=== PATIENT | male | born 1950 | race Caucasian/White ===

== ENCOUNTER → 2020-07-15 19:09 | Outpatient (ROUT) | payer OTHER, SELFPAY ==
[2020-07-15 19:43] LABS: Aspartate Aminotransferase 30 IU/L (17-59); Blood Urea Nitrogen 17 mg/dL (9-20); Calcium 9.7 mg/dL (8.4-10.2); Carbon Dioxide 27 mmol/L (22-32); Chloride 103 mmol/L (98-107); Cholesterol 164 mg/dL (140-199); Estimated Glomerular Filt Rate > 60.0 mL/min (>60); Glucose 91 mg/dL (80-110); HDL Cholesterol 73 mg/dL (40-60); HEMOLYSIS < 15 (0-50); LDL Cholesterol Calculated 78 mg/dL (<100); Potassium 4.2 mmol/L (3.4-5.1); Sodium 138 mmol/L (137-145); Triglycerides 67 mg/dL (35-150)
[2020-07-15 20:15] LABS: Hematocrit 44.3 % (41-53); Hemoglobin 14.6 g/dL (13.5-17.5); Mean Corpuscular Hemoglobin 31.3 PG (26-34); Mean Corpuscular Volume 95.1 fL (80-100); Platelet Count 218 X10^3/uL (150-400); Red Blood Cell Count 4.66 X10^6/uL (4.5-5.9)
[2020-07-15 21:04] LABS: Add Manual Diff / Slide Review NO; White Blood Cell Count 6.2 X10^3/uL (4.5-11.0)
[2020-07-15 21:07] LABS: Prostate Specific Antigen 0.738 ng/mL (0.10-4.00)
[2020-07-15 21:11] LABS: Ferritin 34 ng/mL (18-464)
== END ==
PROVIDERS: PCP Internal Medicine; Visit Provider Internal Medicine
DX: E78.2 Mixed hyperlipidemia (principal); N40.0 Benign prostatic hyperplasia without lower urinary tract symptoms; E61.1 Iron deficiency
CPT/HCPCS: 80048; 80061; 82728; 84153; 84450; 85025

== ENCOUNTER → 2021-01-20 08:24 | Outpatient (CLI) | payer OTHER, SELFPAY ==
[2021-01-20 12:30] LABS: COVID19 -Nasal RAPID Negative (Negative)
== END ==
PROVIDERS: PCP Internal Medicine; Visit Provider Physician Assistant
DX: Z20.822 Contact with and (suspected) exposure to COVID-19 (principal); Z01.812 Encounter for preprocedural laboratory examination
CPT/HCPCS: 87635

== ENCOUNTER 2021-01-21 08:27 | Day surgery (SDC) | payer OTHER, SELFPAY ==
[2021-01-21 09:14] VITALS: BP 137/84; PULSE 66; RESP 16; TEMP 37; O2SAT 100; BMI 23.1
[2021-01-21] MEDS: PROPARACAINE 0.5% OPHTH SOL 2 DROPS EYE-OP (09:26)
[2021-01-21] MEDS: CATARACT EYE COMPOUND (10 DROPS/SYRINGE) 3 DROPS EYE-OP (09:26)
--- NOTE | 2021-01-21 10:02 | P.OP_ITS ---
Operative Date/Time/Diagnoses Pre-op diagnosis: Nuclear cataract right eye Procedure & Clinicians Procedure: Cataract Surgery Same procedure as scheduled: Yes Surgeon: Polo Conde Anesthesia Type: MAC +/- and Sedation Operative Notes Procedure in detail: Patient brought to the operating suite. Tetracaine drops placed in the right eye.Marking instrument was used to deion the vertical and horizontal meridians. Patient was prepped and draped in sterile manner. Wire lid speculum was placed in the eye. Marking instrument was used to deion the 25 degree meridian. Betadine drops were placed on the eye. This was irrigated. Lidocaine jelly was placed on the eye. A paracentesis port was created with a side-port blade. 0.1 mL 1% preservative free lidocaine was injected into the anterior chamber. The anterior chamber was deepened with viscoelastic. 2.6 mm keratome was used to create a temporal clear corneal incision. Cystotome and Utrata forceps were used to create continuous tear capsulorrhexis. Balanced salt solution was used to hydro dissect the nucleus. The phacoemulsification handpiece was inserted and the nucleus was removed using the stop and chop technique. The irrigation aspiration handpiece was inserted and the remaining cortex was removed. Anterior chamber was deepened with viscoelastic. An Mccord [id number] intraocular lens with a power of 10.0 was injected into the capsular bag. Irrigation aspiration handpiece was inserted and the remaining viscoelastic was removed. The lens was rotated to the 25 degree meridian. Incision was hydrated with balanced salt solution and found to be leak free with pressure with Weck- Sharon sponges. 0.1 mL Vigamox injected anterior chamber. 0.3 mL Kenalog 10 mg was injected subconjunctivally. Lid speculum was removed. The patient left the operating room in excellent condition. Complications: none Post-operative Condition: stable Disposition: same day surgery
--- NOTE | 2021-01-21 10:02 | PM.PREOP ---
Pre-operative Note Interval Note History & Physical reviewed/Exam performed by Physician: Yes Changes to H&P: No
[2021-01-21] MEDS: MOXIFLOXACIN INJ 4 MG/0.8 ML VIAL 0.5 MG EYE-OP (10:19)
[2021-01-21] MEDS: HYALURONATE SODIUM 30 MG-10 MG/ML SYRINGES 1 BOX INTRAOCULA (10:19)
[2021-01-21] MEDS: TETRACAINE 0.5% OPHTH DROPS 4 ML 2 DROPS EYE-OP (10:19)
[2021-01-21] MEDS: PHENYLEPHRINE/LIDOCAINE VIAL (OR) 0.2 ML EYE-OP (10:19)
[2021-01-21] MEDS: LIDOCAINE 2% (GLYDO) 6 ML GEL TOP (10:19)
[2021-01-21] MEDS: BALANCED SALT IRRIG SOLN NO.2 500 ML, EPINEPHrine 1 MG IRR (10:20)
[2021-01-21] MEDS: TRIAMCINOLONE 50 MG/5 ML VIAL INJ (10:20)
[2021-01-21 10:35] VITALS: BP 116/72; PULSE 57; RESP 16; TEMP 36.9; O2SAT 97
[2021-01-21 10:43] VITALS: BP 112/72; PULSE 59; RESP 16; O2SAT 98
== END 2021-01-21 10:56 | disposition home or self-care (01) ==
PROVIDERS: PCP Internal Medicine; Referring Provider Ophthalmology; Visit Provider Ophthalmology
PROC: (CPT 66984; principal; 2021-01-21 10:15)
DX: H25.11 Age-related nuclear cataract, right eye (principal); E78.00 Pure hypercholesterolemia, unspecified
CPT/HCPCS: 66984; J0171; J2250; J3010; J3301; V2787

== ENCOUNTER → 2021-02-10 08:03 | Outpatient (CLI) | payer OTHER, SELFPAY ==
[2021-02-10 11:51] LABS: COVID19 -Nasal RAPID Negative (Negative)
== END ==
PROVIDERS: PCP Internal Medicine; Visit Provider Physician Assistant
DX: Z20.822 Contact with and (suspected) exposure to COVID-19 (principal)
CPT/HCPCS: 87635

== ENCOUNTER 2021-02-11 08:08 | Day surgery (SDC) | payer OTHER, SELFPAY ==
[2021-02-11] MEDS: PROPARACAINE 0.5% OPHTH SOL 2 DROPS EYE-OP (08:40)
[2021-02-11] MEDS: CATARACT EYE COMPOUND (10 DROPS/SYRINGE) 3 DROPS EYE-OP (08:41)
[2021-02-11 08:42] VITALS: BP 133/81; PULSE 67; RESP 14; TEMP 36.4; O2SAT 100; BMI 22.8
--- NOTE | 2021-02-11 09:37 | P.OP_ITS ---
Operative Date/Time/Diagnoses Pre-op diagnosis: Nuclear Cataract Left eye Post-op diagnosis: same Procedure & Clinicians Same procedure as scheduled: Yes Surgeon: Polo Conde Anesthesia Type: MAC +/- and Sedation Operative Notes Procedure in detail: Patient brought to the operating suite. Tetracaine drops placed in the left eye. Marking instrument was used to deion the vertical and horizontal meridians. Patient was prepped and draped in sterile manner. Wire lid speculum was placed in the eye. Marking instrument was used ot deion the 150 degree meridian. Bet adine drops were placed on the eye. This was irrigated. Lidocaine jelly was placed on the eye. A paracentesis port was created with a side-port blade. 0.1 mL 1% preservative free lidocaine was injected into the anterior chamber. The anterior chamber was deepened with viscoelastic. 2.6 mm keratome was used to create a temporal clear corneal incision. Cystotome and Utrata forceps were used to create continuous tear capsulorrhexis. Balanced salt solution was used to hydro dissect the nucleus. The phacoemulsification handpiece was inserted and the nucleus was removed using the stop and chop technique. The irrigation aspiration handpiece was inserted and the remaining cortex was removed. Anterior chamber was deepened with viscoelastic. An Mccord [id number] intraocular lens with a power of 8.0 was injected into the capsular bag. Irrigation aspiration handpiece was inserted and the remaining viscoelastic was removed. The lens was rotated to the 150 degree meridian. Incision was hydrated with balanced salt solution and found to be leak free with pressure with Weck-Sharon sponges. 0.1 mL Vigamox injected anterior chamber. 0.3 mL Kenalog 10 mg was injected subconjunctivally. Lid speculum was removed. The patient left the operating room in excellent condition. Complications: none Post-operative Condition: stable Disposition: same day surgery
--- NOTE | 2021-02-11 09:37 | PM.PREOP ---
Pre-operative Note Interval Note History & Physical reviewed/Exam performed by Physician: Yes Changes to H&P: No
[2021-02-11] MEDS: PHENYLEPHRINE/LIDOCAINE VIAL (OR) 0.2 ML EYE-OP (10:00)
[2021-02-11] MEDS: TRIAMCINOLONE 50 MG/5 ML VIAL INJ (10:00)
[2021-02-11] MEDS: HYALURONATE SODIUM 30 MG-10 MG/ML SYRINGES 1 BOX INTRAOCULA (10:00)
[2021-02-11] MEDS: MOXIFLOXACIN INJ 4 MG/0.8 ML VIAL 0.5 MG EYE-OP (10:00)
[2021-02-11] MEDS: LIDOCAINE 2% (GLYDO) 6 ML GEL TOP (10:01)
[2021-02-11] MEDS: BALANCED SALT IRRIG SOLN NO.2 500 ML, EPINEPHrine 1 MG IRR (10:01)
[2021-02-11] MEDS: TETRACAINE 0.5% OPHTH DROPS 4 ML 2 DROPS EYE-OP (10:01)
[2021-02-11 10:21] VITALS: BP 115/75; PULSE 64; RESP 16; TEMP 37.1; O2SAT 100
--- NOTE | 2021-02-11 12:45 | SUR.PHASEII ---
1050: pt ready to go, left unit in stable condition.
== END 2021-02-11 10:50 | disposition home or self-care (01) ==
PROVIDERS: PCP Internal Medicine; Referring Provider Ophthalmology; Visit Provider Ophthalmology
PROC: (CPT 66984; principal; 2021-02-11 09:45)
DX: H25.12 Age-related nuclear cataract, left eye (principal); E78.00 Pure hypercholesterolemia, unspecified
CPT/HCPCS: 66984; J0171; J2250; J3301; V2787

== ENCOUNTER → 2022-03-20 09:23 | Outpatient (CLI) | payer OTHER, SELFPAY ==
[2022-03-20 11:23] LABS: COVID19 -Nasal RAPID Negative (Negative)
== END ==
PROVIDERS: PCP Internal Medicine; Visit Provider Surgery
DX: Z20.822 Contact with and (suspected) exposure to COVID-19 (principal); Z01.812 Encounter for preprocedural laboratory examination
CPT/HCPCS: 87635; C9803

== ENCOUNTER 2022-03-23 08:57 | Day surgery (SDC) | payer OTHER, SELFPAY ==
[2022-03-23 09:26] VITALS: PULSE 138; RESP 16; TEMP 36.8; O2SAT 100; BMI 21.4
--- NOTE | 2022-03-23 09:36 | PM.HP.1 ---
History of Present Illness History of Present Illness Date Patient Seen: 03/23/22 Time Patient Seen: 09:36 Chief complaint: Colonoscopy Narrative: Here for colon cancer screening. Patient History Family & Social History Social History: household members spouse Tobacco & Substance use: Smoking Status Never smoker alcohol intake never Substance Use Type does not use Meds Home Medications and Allergies Home Medications Medication Instructions Recorded Confirmed Type fexofenadine 180 mg tablet 180 mg PO DAILY 01/21/21 03/23/22 History (Ember Allergy) pseudoephedrine HCl 30 mg tablet 30 mg PO Q4-6H PRN Allergic 01/21/21 03/23/22 History (Sudafed) Symptoms rosuvastatin 10 mg tablet (Crestor) 10 mg PO DAILY 01/21/21 03/23/22 History zolpidem 5 mg tablet (Ambien) 5 mg PO PRN PRN Insomnia 01/21/21 03/23/22 History Allergies Allergy/AdvReac Type Severity Reaction Status Date / Time No Known Drug Allergies Allergy Verified 02/11/21 08:37 Review of Systems Review of Systems ROS: Yes All systems reviewed with the patient and are negative except as otherwise documented Exam Vital Signs (past 8 hours): - 03/23/22 09:26 Temperature 98.2 F Pulse Rate 138 H Respiratory Rate 16 Pulse Oximetry 100 Oxygen Delivery Method Room Air Oxygen Delivery Method Room Air Const General: cooperative HENMT Head: normal to inspection Eyes General: appearance normal, both eyes and all related structures Neck Neck: normal visual inspection Chest Chest: normal inspection of the chest Resp Effort & Inspection: normal respiratory effort Cardio Rate: regular rate GI Inspection: normal to inspection Skin General: no rashes or lesions noted Neuro General: patient alert and patient awake Extrem General: normal to inspection and no pedal edema Psych Appearance: grossly normal Assessment & Plan Assessment & Plan narrative: 71-year-old here for colon cancer screening. Colonoscopy is pursued today. Time Spent With Patient Critical Care time: I spent a total of [] minutes of critical care time on this patient's care today; this time is exclusive of procedural time.
--- NOTE | 2022-03-23 09:37 | PM.PREOP ---
Pre-operative Note COVID-19 COVID-19 status: Negative Result date/Date tested (Pos, Neg/Pending): 03/20/22 Criteria for continued procedure: Possibility delay results in more complex future surgery or treatment Interval Note History & Physical reviewed/Exam performed by Physician: Yes Changes to H&P: No ASA Class (for procedural sedation): II
--- NOTE | 2022-03-23 10:48 | PM.OP.COLON ---
Operative Date/Time/Diagnoses Date of procedure: 03/23/22 Time of procedure: 10:48 Pre-op diagnosis: Colon cancer screening Post-op diagnosis: same Procedure & Clinicians Study performed: Colonoscopy Same procedure as scheduled: Yes Indications: Colon cancer screening Surgeon: Bandar Parmar Procedure Notes SCOAP/Timeout: Done Procedure in detail: After the risks and benefits were explained, written and verbal informed consent was obtained. The patient was brought into the procedure room and placed into the left lateral decubitus position. Please see anesthesia notes for sedation details. Digital rectal examination was accomplished. The scope was introduced into the patient and advanced under direct visualization to the cecum as identified by the appendiceal orifice and ileocecal valve. The scope was slowly withdrawn to carefully examine the mucosa for any defects or lesions. Comprehensive imaging was accomplished throughout the rectum including the dentate line. The colon was decompressed, the scope was then removed from the patient who tolerated the procedure well. Adult colonoscope Bowel prep adequate Scope withdrawal time: 6 minutes Sedation minutes: 21 Specimen(s): none sent Complications: none Impression: The patient had a fairly tortuous colon. It was challenging to navigate around what I believe to be the splenic flexure and hepatic flexure. Otherwise no significant mucosal pathology appreciated throughout. Endoscopic diagnosis Visually normal colonoscopy Post-procedure Plan for aftercare: Repeat colonoscopy 10 years; sooner should symptoms warrant an earlier exam. Disposition: PACU
[2022-03-23 10:51] VITALS: BP 101/62; PULSE 70; RESP 14; TEMP 36.4; O2SAT 97
[2022-03-23 10:56] VITALS: BP 99/66; PULSE 70; RESP 16; O2SAT 98
[2022-03-23 11:01] VITALS: BP 103/71; PULSE 69; RESP 7; O2SAT 98
[2022-03-23 11:07] VITALS: BP 109/68; PULSE 68; RESP 15; TEMP 36.4; O2SAT 98
[2022-03-23 11:20] VITALS: BP 134/79; PULSE 72; RESP 16; TEMP 36.7; O2SAT 97
== END 2022-03-23 11:25 | disposition home or self-care (01) ==
PROVIDERS: PCP Internal Medicine; Referring Provider Internal Medicine Gastroenterology; Visit Provider Internal Medicine Gastroenterology
PROC: 0DJD8ZZ Inspection of Lower Intestinal Tract, Via Natural or Artificial Opening Endoscopic (ICD-10-PCS; CPT 45378; principal; 2022-03-23 10:00)
DX: Z12.11 Encounter for screening for malignant neoplasm of colon (principal)
CPT/HCPCS: 45378; J2250; J2704; J3010

== ENCOUNTER → 2022-06-17 16:01 | Outpatient (CLI) | payer OTHER, SELFPAY ==
[2022-06-17 16:27] LABS: Hematocrit 43.6 % (41-53); Hemoglobin 14.7 g/dL (13.5-17.5); Mean Corpuscular HGB Conc 33.6 % (30-36); Mean Corpuscular Hemoglobin 29.6 PG (26-34); Platelet Count 206 X10^3/uL (150-400); Red Blood Cell Count 4.96 X10^6/uL (4.5-5.9); Red Cell Distribution Width 13.9 % (11.6-14.8); White Blood Cell Count 5.1 X10^3/uL (4.5-11.0)
[2022-06-17 16:57] LABS: Alanine Aminotransferase 25 IU/L (<50); Albumin Globulin Ratio 1.3 (1.0-2.8); Alkaline Phosphatase 139 U/L (38-126); Aspartate Aminotransferase 26 IU/L (17-59); BUN Creatinine Ratio 23.2 (6-22); Bilirubin Total 0.6 mg/dL (0.2-1.3); Blood Urea Nitrogen 16 mg/dL (9-20); Calcium 9.2 mg/dL (8.4-10.2); Carbon Dioxide 30 mmol/L (22-32); Chloride 100 mmol/L (98-107); Cholesterol 146 mg/dL (140-199); Estimated Glomerular Filt Rate > 60 mL/min (>60); Globulin 3.1 g/dL (1.7-4.1); Glucose 90 mg/dL (80-110); HDL Cholesterol 69 mg/dL (40-60); HEMOLYSIS < 15 (0-50); LDL Cholesterol Calculated 66 mg/dL (<100); Potassium 4.6 mmol/L (3.4-5.1); Sodium 136 mmol/L (137-145); Total Protein 7.1 g/dL (6.3-8.2); Triglycerides 54 mg/dL (35-150)
[2022-06-17 17:26] LABS: TSH w/ Reflex to FT4 < 0.02 uIU/mL (0.47-4.68)
[2022-06-17 17:27] LABS: Prostate Specific Antigen 0.953 ng/mL (0.10-4.00)
[2022-06-17 18:10] LABS: Free T4, Direct Thyroxine 2.07 ng/dL (0.78-2.19)
[2022-06-19 03:09] LABS: x Labcorp Estim. Avg Glu (eAG) 117 mg/dL (.); x Labcorp Hemoglobin A1c 5.7 % (4.8-5.6)
== END ==
PROVIDERS: PCP Internal Medicine; Referring Provider Internal Medicine; Visit Provider Internal Medicine
DX: R10.9 Unspecified abdominal pain (principal); R73.01 Impaired fasting glucose
CPT/HCPCS: 36415; 80053; 80061; 83036; 84153; 84439; 84443; 85027

== ENCOUNTER → 2022-06-29 14:28 | Outpatient (CLI) | payer OTHER, SELFPAY ==
--- NOTE | 2022-06-29 14:29 | DI.CT.S_ITS ---
PROCEDURE: CT ABDOMEN PELVIS W CON INDICATIONS: Abdominal pain, weight loss TECHNIQUE: After the administration of oral and intravenous contrast, axial sections were acquired from the lung bases to the pubic symphysis. Coronal and sagittal reformats were performed. For radiation dose reduction, the following was used: automated exposure control, adjustment of mA and/or kV according to patient size. COMPARISON:None. FINDINGS: Image quality: Excellent. Lung bases: Unremarkable. Heart: No significant findings. ABDOMEN: Liver: Subcentimeter hypoattenuating liver lesions, too small to characterize by CT but probably small cysts. The largest lesions do demonstrate fluid attenuation. Gallbladder: Unremarkable. Biliary ducts: Unremarkable. Pancreas: Unremarkable. Spleen: Unremarkable. Adrenal Glands: Unremarkable. Kidneys and Ureters: Unremarkable. Stomach and Bowel: Moderate hiatal hernia. Peritoneum: No abnormal intraperitoneal fluid. No free air. Ventral Wall: No hernia. Abdominal Nodes: No retroperitoneal or mesenteric adenopathy by size criteria. Vessels: Aorta and inferior vena cava are normal in size. PELVIS: Pelvic Organs: Unremarkable. Bladder: Unremarkable. Pelvic Nodes: No enlarged lymph nodes. Miscellaneous: No inguinal hernias are seen. Bones: Unremarkable. IMPRESSION: Mild gastric wall thickening, which may be an artifact of underdistention, but gastritis or malignancy are not entirely excluded. Consider direct visualization in the setting of unintentional weight loss. Dictated by: Luis M Payan M.D. on 06/29/2022 at 16:33 Approved by: Luis M Payan M.D. on 06/29/2022 at 16:36
== END ==
PROVIDERS: PCP Internal Medicine; Referring Provider Internal Medicine; Visit Provider Internal Medicine
DX: R10.9 Unspecified abdominal pain (principal)
CPT/HCPCS: 74177; Q9967

== ENCOUNTER → 2022-12-24 17:25 | Outpatient (CLI) | payer OTHER, SELFPAY ==
[2022-12-24 17:47] LABS: BUN Creatinine Ratio 17.7 (6-22); Blood Urea Nitrogen 14 mg/dL (9-20); Calcium 9.5 mg/dL (8.4-10.2); Carbon Dioxide 28 mmol/L (22-32); Chloride 102 mmol/L (98-107); Estimated Glomerular Filt Rate > 60 mL/min (>60); Glucose 89 mg/dL (80-110); HEMOLYSIS 16 (0-50); Potassium 4.1 mmol/L (3.4-5.1); Sodium 138 mmol/L (137-145)
[2022-12-24 18:05] LABS: Follicle Stimulating Hormone 4.59 mIU/mL; Luteinizing Hormone 2.64 mIU/mL
[2022-12-24 18:06] LABS: Free T3, Triiodothyronine Free 3.48 pg/mL (2.77-5.27); Free T4, Direct Thyroxine 1.02 ng/dL (0.78-2.19); Triiodothryronine T3 Uptake 33.5 % (23.5-40.5)
[2022-12-24 18:07] LABS: Prolactin 14.5 ng/mL (3.7-17.9)
[2022-12-24 18:20] LABS: Thyroid Stimulating Hormone 0.058 uIU/mL (0.47-4.68)
[2022-12-24 18:23] LABS: Testosterone 316 ng/dL (71.8-623)
== END ==
PROVIDERS: PCP Internal Medicine; Referring Provider Internal Medicine; Visit Provider Internal Medicine
DX: D35.2 Benign neoplasm of pituitary gland (principal); R79.89 Other specified abnormal findings of blood chemistry
CPT/HCPCS: 36415; 80048; 83001; 83002; 84146; 84403; 84439; 84443; 84479; 84481

== ENCOUNTER → 2023-01-01 15:13 | Outpatient (CLI) | payer OTHER, SELFPAY ==
--- NOTE | 2023-01-01 15:14 | DI.MRI.S_ITS ---
PROCEDURE: MR BRAIN (PITUITARY) WWO CON INDICATIONS: prolactinoma TECHNIQUE: Noncontrast sagittal and axial FLAIR, axial gradient echo, axial diffusion and ADC through the brain. Thin-slice sagittal and coronal T1 spin echo, coronal T2 fast spin echo through the pituitary. After the administration contrast, optional dynamic coronal T1 spin echo, thin-slice coronal and sagittal T1 spin echo images through the pituitary fossa; axial and coronal and sagittal T1 spin echo with fat saturation through the brain. COMPARISON: None. FINDINGS: Image quality: Excellent. Pituitary Gland: The pituitary gland is normal in size and appearance. No pituitary masses are seen. The pituitary gland enhances normally. The pituitary stalk is midline. CSF Spaces: Ventricles are normal in size and shape. Basal cisterns are patent. No extra-axial fluid collections. Brain: No intracranial bleeds or mass effects. No abnormal intracranial enhancement. Palomino-white matter interface is intact. Minimal chronic microvascular ischemic changes. Age-related global volume loss. Diffusion weighted images demonstrate no acute ischemic insults. Brainstem is normal. Normal intravascular flow voids are present. Skull and face: Calvarial marrow is normal in signal. Orbits appear normal. Sinuses: Sinuses and mastoids are clear. IMPRESSION: 1. Note pituitary masses. The pituitary gland is normal in size and appearance. 2. No acute intracranial abnormalities. Dictated by: Theron Coles M.D. on 01/01/2023 at 16:37 Approved by: Theron Coles M.D. on 01/01/2023 at 16:40
== END ==
PROVIDERS: PCP Internal Medicine; Referring Provider Internal Medicine; Visit Provider Internal Medicine
DX: D35.2 Benign neoplasm of pituitary gland (principal)
CPT/HCPCS: 70553

== ENCOUNTER → 2023-06-24 07:09 | Outpatient (CLI) | payer OTHER, SELFPAY ==
--- NOTE | 2023-06-24 07:10 | DI.US.S_ITS ---
PROCEDURE: US ABDOMEN LIMITED INDICATIONS: Eval for hernia or mass TECHNIQUE: Real-time focused scanning was performed of the abdomen, with image documentation. COMPARISON: None. FINDINGS: There is no sonographic abnormality visualized within the left inguinal region in the area of pain. IMPRESSION: No sonographic evidence for left inguinal hernia. Dictated by: Rosie Mahoney M.D. on 06/24/2023 at 9:07 Approved by: Rosie Mahoney M.D. on 06/24/2023 at 9:07
== END ==
LOC: US 07:09
PROVIDERS: PCP Internal Medicine; Referring Provider Physician Assistant; Visit Provider Physician Assistant
DX: R10.32 Left lower quadrant pain (principal)
CPT/HCPCS: 76705

== ENCOUNTER → 2024-02-03 08:41 | Outpatient (CLI) | payer OTHER, SELFPAY ==
[2024-02-03 09:39] LABS: Hematocrit 43.4 % (41-53); Hemoglobin 14.5 g/dL (13.5-17.5); Mean Corpuscular HGB Conc 33.5 % (30-36); Mean Corpuscular Hemoglobin 31.6 PG (26-34); Mean Corpuscular Volume 94.4 fL (80-100); Platelet Count 234 X10^3/uL (150-400); Red Cell Distribution Width 13.6 % (11.6-14.8); White Blood Cell Count 6.4 X10^3/uL (4.5-11.0)
[2024-02-03 09:45] LABS: Hemoglobin A1C% w Est Avg Glu 5.7 % (4.0-6.0)
[2024-02-03 09:51] LABS: HEMOLYSIS 41 (0-50); Iron 124 ug/dL (49-181)
[2024-02-03 09:54] LABS: Aspartate Aminotransferase 31 IU/L (17-59); BUN Creatinine Ratio 18.7 (6-22); Blood Urea Nitrogen 17 mg/dL (9-20); Calcium 9.4 mg/dL (8.4-10.2); Carbon Dioxide 29 mmol/L (22-32); Chloride 103 mmol/L (98-107); Cholesterol 167 mg/dL (140-199); Estimated Glomerular Filt Rate > 60 mL/min (>60); Glucose 83 mg/dL (80-110); HDL Cholesterol 64 mg/dL (40-60); HEMOLYSIS 15 (0-50); LDL Cholesterol Calculated 86 mg/dL (<100); Potassium 4.6 mmol/L (3.4-5.1); Sodium 138 mmol/L (137-145); Triglycerides 84 mg/dL (35-150)
[2024-02-03 10:04] LABS: Percent Iron Saturation 44 % (20-50); Total Iron Binding Capacity 281 ug/dL (261-462); Transferrin 254 mg/dL (206-381)
[2024-02-03 10:23] LABS: TSH w/ Reflex to FT4 1.27 uIU/mL (0.47-4.68)
[2024-02-03 10:24] LABS: Prostate Specific Antigen 0.889 ng/mL (0.10-4.00)
[2024-02-03 10:28] LABS: Ferritin 53 ng/mL (18-464)
== END ==
PROVIDERS: PCP Internal Medicine; Referring Provider Internal Medicine; Visit Provider Internal Medicine
DX: R79.89 Other specified abnormal findings of blood chemistry (principal); E78.2 Mixed hyperlipidemia; E61.1 Iron deficiency; R73.01 Impaired fasting glucose; J30.89 Other allergic rhinitis; H53.9 Unspecified visual disturbance; H40.9 Unspecified glaucoma; K59.01 Slow transit constipation
CPT/HCPCS: 36415; 80048; 80061; 82728; 83036; 83540; 83550; 84153; 84443; 84450; 85027

== ENCOUNTER → 2025-02-12 10:05 | Outpatient (CLI) | payer OTHER, SELFPAY ==
[2025-02-12 10:57] LABS: Hematocrit 43.3 % (41-53); Hemoglobin 14.6 g/dL (13.5-17.5); Mean Corpuscular HGB Conc 33.6 % (30-36); Mean Corpuscular Hemoglobin 31.2 PG (26-34); Mean Corpuscular Volume 92.7 fL (80-100); Platelet Count 216 X10^3/uL (150-400)
[2025-02-12 11:22] LABS: Alanine Aminotransferase 20 IU/L (<50); Albumin 4.3 g/dL (3.5-5.0); Albumin Globulin Ratio 1.4 (1.0-2.8); Alkaline Phosphatase 92 U/L (38-126); Blood Urea Nitrogen 18 mg/dL (9-20); Calcium 9.3 mg/dL (8.4-10.2); Carbon Dioxide 28 mmol/L (22-32); Chloride 103 mmol/L (98-107); Cholesterol 172 mg/dL (140-199); Estimated Glomerular Filt Rate > 60 mL/min (>60); Globulin 3.1 g/dL (1.7-4.1); Glucose 96 mg/dL (70-99); HDL Cholesterol 77 mg/dL (40-60); HEMOLYSIS < 15 (0-50); Potassium 4.7 mmol/L (3.4-5.1); Sodium 138 mmol/L (137-145); Total Protein 7.4 g/dL (6.3-8.2); Triglycerides 90 mg/dL (35-150)
[2025-02-12 11:31] LABS: Hemoglobin A1C% w Est Avg Glu 5.5 % (4.0-6.0)
[2025-02-12 12:00] LABS: TSH w/ Reflex to FT4 2.06 uIU/mL (0.47-4.68)
== END ==
PROVIDERS: PCP Internal Medicine; Referring Provider Internal Medicine; Visit Provider Internal Medicine
DX: Z12.5 Encounter for screening for malignant neoplasm of prostate (principal); E78.2 Mixed hyperlipidemia; R73.01 Impaired fasting glucose; R79.89 Other specified abnormal findings of blood chemistry; I73.00 Raynaud's syndrome without gangrene
CPT/HCPCS: 36415; 80053; 80061; 83036; 84443; 85027; G0103